=== PATIENT | female | born 1955 | race Caucasian/White ===

== ENCOUNTER 2024-10-06 13:56 | Emergency (ER) | payer BC ==
[2024-10-06 14:45] LABS: HEMATOCRIT 39.6 % (32.4-45.2); HEMOGLOBIN 12.8 GM/dL (10.7-15.3); MCHC 32.2 g/dl (32.0-36.0); MEAN PLT VOLUME 7.5 fl (7.5-11.1); PLATELET COUNT 258 10^3/uL (134-434); RDW 13.9 % (11.6-15.6); WHITE BLOOD COUNT 3.9 K/mm3 (4.0-10.0)
[2024-10-06] MEDS ORDERED: ACETAMINOPHEN INJECTION 100 ML ONE (14:49)
[2024-10-06] MEDS: ACETAMINOPHEN 1000 MG/100 ML BAG IVPB ONE (14:54)
[2024-10-06 14:55] LABS: ACTIVATED PTT 28.3 SECONDS (25.2-36.5)
[2024-10-06 15:03] LABS: CHLORIDE 106 mmol/L (98-107); POTASSIUM 3.5 mmol/L (3.5-5.1); SODIUM 139 mmol/L (136-145)
[2024-10-06 15:05] LABS: CALCIUM 9.3 mg/dL (8.5-10.1)
[2024-10-06 15:06] LABS: ALBUMIN 3.6 g/dl (3.4-5.0); ANION GAP 8 mmol/L (4-13); CO2 25 mmol/L (21-32)
[2024-10-06 15:07] LABS: BLOOD UREA NITROGEN 18.4 mg/dL (7-18); GLUCOSE,RANDOM 140 mg/dL (74-106)
[2024-10-06 15:09] LABS: CREATININE 0.8 mg/dL (0.55-1.3); SGOT/AST 49 U/L (15-37); SGPT/ALT 58 U/L (13-61)
[2024-10-06 15:10] VITALS: BP 131/59; PULSE 94; RESP 18; TEMP 100.7; BMI 23.3
[2024-10-06 15:10] LABS: CHOLESTEROL 184 mg/dL (50-200)
[2024-10-06 15:11] LABS: TOT PROT 6.6 g/dl (6.4-8.2)
[2024-10-06 15:12] LABS: BILIRUBIN,TOTAL 0.3 mg/dL (0.2-1); LDL CHOLESTEROL (ONLY SJRH) 86 mg/dL (5-100)
[2024-10-06 15:13] LABS: ALK PHOS 125 U/L (45-117); HDL CHOLESTEROL 89 mg/dL (40-60)
[2024-10-06 15:26] LABS: INR 1.17 (0.83-1.09); PROTHROMBIN TIME (PATIENT) 12.7 SEC (9.7-13.0)
[2024-10-06] MEDS: SODIUM CHLORIDE 1,000 ML IV SCH (15:30)
[2024-10-06] MEDS ORDERED: KETOROLAC TROMETHAMINE 15 MG/ML VIAL ONE (17:01)
[2024-10-06] MEDS: KETOROLAC TROMETHAMINE 15 MG/ML VIAL IVPUSH ONE (17:18)
[2024-10-06 17:26] LABS: PH,URINE 5.5 (5.0-8.0); URINE APPEARANCE CLEAR; URINE BILIRUBIN NEGATIVE (NEGATIVE); URINE COLOR YELLOW; URINE GLUCOSE (UA) NEGATIVE (NEGATIVE); URINE KETONE TRACE (NEGATIVE); URINE NITRITE NEGATIVE (NEGATIVE); URINE PROTEIN TRACE (NEGATIVE)
[2024-10-06 17:27] LABS: URINE LEUK ESTERASE NEGATIVE (NEGATIVE)
[2024-10-06 17:28] LABS: EPI CELLS 2.3 /uL (0-25.1); URINE RBC 6.1 /uL (0-23.9)
[2024-10-06 17:29] LABS: URINE BACTERIA 17.9 /uL (0-1359)
== END 2024-10-06 18:24 | disposition left against medical advice (07) ==
LOC: JER 13:56
PROC: 3E033NZ Introduction of Analgesics, Hypnotics, Sedatives into Peripheral Vein, Percutaneous Approach (ICD-10-PCS; principal; 2024-10-06)
PROC: 3E0333Z Introduction of Anti-inflammatory into Peripheral Vein, Percutaneous Approach (ICD-10-PCS; 2024-10-06)
DX: J10.1 Influenza due to other identified influenza virus with other respiratory manifestations (principal); R47.01 Aphasia; Z20.822 Contact with and (suspected) exposure to COVID-19
CPT/HCPCS: 0241U-QW; 36415; 70450-TC; 70496-TC; 70498-TC; 71045-TC-FY; 80053; 80061; 81003; 82550; 82962; 83036; 84484; 85025; 85610; 85730; 86850; 86900; 86901; 93005; 93010; 99285-25; J0131